=== PATIENT | female | born 1980 | race Caucasian/White ===

== ENCOUNTER 2017-01-10 17:20 | Emergency (ER) | payer OTHER ==
[2017-01-10 17:33] VITALS: BP 111/70; PULSE 81; TEMP 97.3; BMI 21.4
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
[2017-01-10] MEDS ORDERED: KETOROLAC TROMETHAMINE 60 MG/2 ML VIAL ONE (18:10)
[2017-01-10] MEDS ORDERED: CYCLOBENZAPRINE HCL 10 MG TABLET (FP) ONE (18:10)
[2017-01-10] MEDS ORDERED: CYCLOBENZAPRINE HCL 10 MG TABLET (FP) PO ONE (18:14)
[2017-01-10] MEDS ORDERED: KETOROLAC TROMETHAMINE 60 MG/2 ML VIAL IM ONE (18:14)
== END 2017-01-10 18:28 | disposition home or self-care (01) ==
LOC: JERFT 17:20
DX: S13.4XXA Sprain of ligaments of cervical spine, initial encounter (principal); V43.52XA Car driver injured in collision with other type car in traffic accident, initial encounter; Y92.414 Local residential or business street as the place of occurrence of the external cause; Y93.89 Activity, other specified; Y99.9 Unspecified external cause status
CPT/HCPCS: 99281-25

== ENCOUNTER 2022-02-02 18:40 | Emergency (ER) | payer BC, OTHER ==
[2022-02-02 18:53] VITALS: BP 119/81; PULSE 80; RESP 18; TEMP 98.4; BMI 19.0
[2022-02-02] MEDS ORDERED: ACETAMINOPHEN 325 MG TABLET (FP) PO ONE (20:25)
[2022-02-02] MEDS ORDERED: ACETAMINOPHEN 325 MG TABLET (FP) ONE (21:04)
== END 2022-02-02 22:55 | disposition home or self-care (01) ==
LOC: JERFT 18:40 → JER 18:40 → JERFT 22:55
DX: U07.1 COVID-19 (principal)
CPT/HCPCS: 0241U-QW; 99283-25